=== PATIENT | female | born 1985 | race Caucasian/White ===

== ENCOUNTER 2016-11-29 17:50 | Emergency (ER) | payer SELFPAY ==
[~2016-11-29] VITALS: Wt 108.9 kg
[~2016-11-29 17:50] MED LIST: 'PARAFON FORTE500 M1 PO; BACTRIM DS 8001 TA1 PO; HYDROCODONE BIT1 T11 PO; NAPROSYN500 MG PO
[2016-11-29] MEDS ORDERED: Peridex 473 ML473 ML PO (17:56)
[2016-11-29] MEDS ORDERED: NAPROSYN500 MG PO (17:56)
[2016-11-29] MEDS ORDERED: PENICILLIN VK500 MG PO (17:56)
== END 2016-11-29 18:15 | disposition home or self-care (01) ==
LOC: ED 17:50
DX: K02.9 Dental caries, unspecified (principal); R03.0 Elevated blood-pressure reading, without diagnosis of hypertension; Z98.890 Other specified postprocedural states